=== PATIENT | male | born 1950 | race Caucasian/White ===

== ENCOUNTER 2023-06-06 09:45 | Emergency (ER) | payer MEDICARE, OTHER ==
[2023-06-06 10:44] LABS: BILIRUBIN,URINE SMALL (NEGATIVE); COLOR,URINE YELLOW; GLUCOSE,URINE NEGATIVE (NEGATIVE); KETONES,URINE TRACE mg/dL (NEGATIVE); LEUKOCYTE ESTERASE,URINE NEGATIVE (NEGATIVE); NITRITE,URINE NEGATIVE (NEGATIVE); OCCULT BLOOD,URINE LARGE (NEGATIVE); PH,URINE 5.5 (5.0-8.0); PROTEIN,URINE TRACE mg/dL (NEGATIVE); UROBILINOGEN,URINE 0.2 E.U./dL (0.2-1.0)
[2023-06-06 10:49] LABS: APPEARANCE,URINE CLOUDY (CLEAR); RBC,URINE 75-100 /HPF
[2023-06-06 10:50] LABS: MUCUS,URINE FEW /HPF; SQUAMOUS EPITHELIAL CELLS,UR MANY /HPF
[2023-06-06 11:22] LABS: BASOPHILS ABSOLUTE AUTO 0.06 K/uL (0.02-0.10); BASOPHILS PERCENT AUTO 0.8 % (0.0-0.5); EOSINOPHILS ABSOLUTE AUTO 0.38 K/uL (0.04-0.40); EOSINOPHILS PERCENT AUTO 5.3 % (1.0-5.0); HEMATOCRIT 38.8 % (40.0-54.0); HEMOGLOBIN 13.6 g/dL (13.0-18.0); LYMPHOCYTES ABSOLUTE AUTO 1.24 K/uL (1.50-4.00); LYMPHOCYTES PERCENT AUTO 17.2 % (20.0-40.0); MEAN CORPUSCULAR HEMOGLOBIN 35.4 pg (27.0-32.0); MEAN CORPUSCULAR HGB CONC 35.1 g/dL (31.0-35.0); MEAN CORPUSCULAR VOLUME 101 fL (76-96); MEAN PLATELET VOLUME 9.9 fL (6.0-10.0); MONOCYTES ABSOLUTE AUTO 0.48 K/uL (0.20-0.80); MONOCYTES PERCENT AUTO 6.6 % (3.0-10.0); NEUTROPHILS ABSOLUTE AUTO 5.07 K/uL (2.00-7.50); NEUTROPHILS PERCENT AUTO 70.1 % (45.0-70.0); PLATELET COUNT,PLT 187 K/uL (150-400); RED BLOOD CELL COUNT 3.84 M/uL (4.50-6.50); RED CELL DISTRIBUTION WIDTH 12.9 % (11.0-16.0); WHITE BLOOD CELL COUNT,WBC 7.2 K/uL (4.0-11.0)
[2023-06-06 11:39] LABS: ALBUMIN 3.5 g/dL (3.4-5.0); ANION GAP 11.5 mmol/L (5.0-15.0); BUN/CREATININE RATIO 14.9 (6-25); CALCIUM 8.6 mg/dL (8.5-10.1); CREATININE 1.34 mg/dL (0.70-1.30); EST CRCL DRUG DOSING (CG) 46.59 mL/min; POTASSIUM,K 4.5 mmol/L (3.5-5.1)
== END 2023-06-06 12:07 | disposition home or self-care (01) ==
LOC: LB.ED 09:45
DX: N20.0 Calculus of kidney (principal); Z79.899 Other long term (current) drug therapy
CPT/HCPCS: 36415; 74176; 80053; 81001; 85025; 99284